=== PATIENT | female | born 1975 | race Caucasian/White ===

== ENCOUNTER 2018-01-10 11:02 | Observation (INO) | payer OTHER ==
[~2018-01-10] VITALS: Ht 162.6 cm; Wt 92.0 kg
[2018-01-10 11:39] LABS: HEMATOCRIT 42.9 % (36.0-46.0); HEMOGLOBIN 14.8 G/DL (11.9-15.5); MCH 30.5 PG (29.0-34.0); MCHC 34.5 G/DL (30.0-36.0); MCV 88.5 FL (83-99); PLATELET COUNT 303 K/uL (156-360); RBC DIS.WIDTH-CV 11.8 % (11.8-14.6); RED BLOOD COUNT 4.85 M/uL (3.80-5.20); WHITE BLOOD COUNT 9.9 K/uL (4.1-10.2)
[2018-01-10 11:51] LABS: CHLORIDE 106 mEq/L (99-109); POTASSIUM 4.3 mEq/L (3.7-5.4); SODIUM 138 mEq/L (136-147)
[2018-01-10 11:52] LABS: GLUCOSE 89 mg/dL (70-99)
[2018-01-10 11:56] LABS: CREATININE 0.9 mg/dL (0.6-1.3)
[2018-01-10 11:57] LABS: UREA NITROGEN (BUN) 15 mg/dL (9-23)
[2018-01-10 12:01] LABS: TROP-I INTERPRETATION NEGATIVE; TROPONIN-I < 0.01 ng/mL (0.0-0.30)
[2018-01-10 12:08] LABS: GFR ESTIMATE (CALCULATED) > 59 mL/min/
[2018-01-10] MEDS ORDERED: LEXAPRO5 MG PO (14:36)
[2018-01-10] MEDS ORDERED: LEXAPRO10 MG PO (14:36)
[2018-01-10] MEDS ORDERED: B-121000 MC2 PO (14:37)
[2018-01-10] MEDS ORDERED: ONE DAILY1 EAC3 PO (14:37)
[2018-01-10] MEDS ORDERED: MIRENA1 EACH IY (14:38)
[2018-01-10 15:35] VITALS: BP 119/64
[2018-01-10 18:44] LABS: TROP-I INTERPRETATION NEGATIVE; TROPONIN-I < 0.01 ng/mL (0.0-0.30)
[2018-01-10 19:15] VITALS: BP 127/67
[2018-01-10 23:00] VITALS: BP 125/73
[2018-01-11 01:20] LABS: TROP-I INTERPRETATION NEGATIVE; TROPONIN-I < 0.01 ng/mL (0.0-0.30)
[2018-01-11 04:07] VITALS: BP 114/64
[2018-01-11 08:15] VITALS: BP 125/59
[2018-01-11 09:41] LABS: HEMOGLOBIN A1c (GLYCOHEMOGLOB) 5.2 % (Below 5.7)
[2018-01-11] MEDS ORDERED: ATORVASTATIN CA20 MG PO (09:45)
== END 2018-01-11 11:27 | disposition home or self-care (01) ==
LOC: EME 11:02 → 5WEST 14:15 → EDOF 14:15 → ENRESERV 14:27 → EDOF 14:27 → ENRESERV 14:44 → 5WEST 15:17
PROVIDERS: Internal Medicine
DX: R07.89 Other chest pain (principal); E78.5 Hyperlipidemia, unspecified; F41.9 Anxiety disorder, unspecified; F32.9 Major depressive disorder, single episode, unspecified; Z82.49 Family history of ischemic heart disease and other diseases of the circulatory system; E66.9 Obesity, unspecified; Z68.34 Body mass index [BMI] 34.0-34.9, adult; Z87.891 Personal history of nicotine dependence; Z88.2 Allergy status to sulfonamides; Z88.5 Allergy status to narcotic agent; Z79.82 Long term (current) use of aspirin
CPT/HCPCS: 71046; 71275; 80048; 83036; 84484; 85027; 85379; 93005; 99281; 99285; G0378